=== PATIENT | male | born 1950 | race Caucasian/White ===

== ENCOUNTER → 2017-09-24 | Day surgery (SDC) | payer MEDICARE, MEDICAID ==
[2017-09-19 10:26] VITALS: BMI 37.1
[~2017-09-24] MED LIST: Lactated Ringer's 500 ML IV ONE
[2017-09-24 08:38] VITALS: O2SAT 96
[2017-09-24 09:57] VITALS: TEMP 98
[2017-09-24 10:21] VITALS: BP 121/71; PULSE 71; RESP 14
== END | disposition home or self-care (01) ==
LOC: H.ENDO 07:54 → EDSTATUS 10:30
PROVIDERS: ATTEND Internal Medicine Gastroenterology
DX: Z12.11 Encounter for screening for malignant neoplasm of colon (principal); I10 Essential (primary) hypertension; K57.30 Diverticulosis of large intestine without perforation or abscess without bleeding; D12.3 Benign neoplasm of transverse colon; K64.0 First degree hemorrhoids; K44.9 Diaphragmatic hernia without obstruction or gangrene; K29.70 Gastritis, unspecified, without bleeding; K25.9 Gastric ulcer, unspecified as acute or chronic, without hemorrhage or perforation; K31.89 Other diseases of stomach and duodenum; R10.13 Epigastric pain
CPT/HCPCS: 43239; 45385; 88305; J7120